=== PATIENT | female | born 1970 | race Caucasian/White ===

== ENCOUNTER → 2019-07-26 | Outpatient (CLI) | payer BC ==
[~2019-07-26] MED LIST: ATIVAN0.5 MG PO; FLUOXETINE
[2019-07-26 11:49] LABS: HEMATOCRIT 43.6 % (37.0-47.0); HEMOGLOBIN 14.7 g/dl (12.5-16.0); MEAN CELL VOLUME 95 fl (80.0-100.0); MEAN CORPUSCULAR HEMOGLOBIN 32 pg (27.0-31.0); MEAN CORPUSCULAR HGB CONC 34 g/dl (33.0-37.0); MEAN PLATELET VOLUME 10.6 fl (7.4-10.4); PLATELET COUNT 326 K/mm3 (130-400); RED BLOOD COUNT 4.57 M/mm3 (4.10-5.30); REDCELL DISTRIBUTION WIDTH-CV 11.9 % (11.5-14.5)
[2019-07-26 11:55] LABS: ALBUMIN 4.9 gm/dL (3.5-5.0); BILIRUBIN,TOTAL 0.6 mg/dL (0.0-1.0); CALCIUM 9.9 mg/dL (8.4-10.2); CHOLESTEROL RISK RATIO 2.4; CREATININE, serum 0.55 (0.52-1.25); POTASSIUM 4.3 mmol/L (3.4-5.0); TOTAL PROTEIN 8.6 gm/dL (6.4-8.2)
[2019-07-26 12:25] LABS: THYROID STIMULATING HORMONE 1.36 uIU/mL (0.465-4.680)
== END ==
LOC: ZLAB.FHCC 10:40
PROVIDERS: Pediatrics
DX: Z00.00 Encounter for general adult medical examination without abnormal findings (principal); F41.9 Anxiety disorder, unspecified; K21.9 Gastro-esophageal reflux disease without esophagitis

== ENCOUNTER 2021-05-11 10:47 | Inpatient (IN) | payer OTHER ==
[~2021-05-11] VITALS: Ht 154.9 cm; Wt 90.7 kg
[2021-05-11 11:58] LABS: BASO # 0.1 K/mm3 (0.0-0.2); BASO % 0.3 % (0.0-2.0); EOS # 0.1 K/mm3 (0.0-0.7); EOS % 0.3 % (0-4.0); GRAN % 84.1 % (42.2-75.2); HEMATOCRIT 46.1 % (37.0-47.0); HEMOGLOBIN 15.6 g/dl (12.5-16.0); LYMPH # 1.8 K/mm3 (1.2-3.4); LYMPH % 9.2 % (20.0-51.0); MEAN CELL VOLUME 96 fl (80.0-100.0); MEAN CORPUSCULAR HEMOGLOBIN 32 pg (27.0-31.0); MEAN CORPUSCULAR HGB CONC 34 g/dl (33.0-37.0); MEAN PLATELET VOLUME 9.8 fl (7.4-10.4); MONO # 1.1 K/mm3 (0.1-0.6); MONO % 5.7 % (1.7-9.3); PLATELET COUNT 365 K/mm3 (130-400); RED BLOOD COUNT 4.81 M/mm3 (4.10-5.30)
[2021-05-11 12:17] LABS: ALBUMIN 4.7 gm/dL (3.5-5.0); BILIRUBIN,TOTAL 0.7 mg/dL (0.2-1.2); CALCIUM 10.9 mg/dL (8.4-10.2); CREATININE, serum 0.95 mg/dL (0.57-1.11); TOTAL PROTEIN 9.8 gm/dL (6.2-8.1)
[2021-05-11 12:58] LABS: COLLECTION METHOD CLEAN CATCH
[2021-05-11 13:07] LABS: MUCOUS Present /lpf; PH 5 (5-8); URINE APPEARANCE Cloudy; URINE BACTERIA None Seen /hpf; URINE BILIRUBIN Positive (NEGATIVE); URINE BLOOD Negative (NEGATIVE); URINE COLOR Amber; URINE GLUCOSE Negative (NEGATIVE); URINE KETONE Trace (NEGATIVE); URINE LEUKOCYTE ESTERASE Negative (NEGATIVE); URINE NITRATE Negative (NEGATIVE); URINE PROTEIN(semi-quant) 2+ (NEGATIVE)
[2021-05-11] MEDS ORDERED: PRILOSEC10 MG PO (17:19)
[2021-05-11] MEDS ORDERED: ATIVAN 0.50.5 MG/TAB PO (17:19)
[2021-05-11 17:20] VITALS: BP 137/71; PULSE 87; TEMP 96.8
--- NOTE | 2021-05-11 18:30 | NUR ---
PT ARRIVED ON UNIT. NO COMPLAINTS OF PAIN OR NAUSEA. NO SIGNS OR SYMPTOMS OF DISTRESS. REPORT GIVEN TO [employer] ARTISTIC DIRECTOR.
[2021-05-11 20:10] VITALS: BP 128/64; PULSE 108; TEMP 98.4
--- NOTE | 2021-05-11 21:00 | NUR ---
PT REPORTS SHE WANTS TO GO HOME TONIGHT. CALLED DR BARKER TO REPORT THIS. PT DECLINED TO GO AMA AND WILL WAIT TILL MORNING TO VISIT WITH DR BARKER. PT REPORTS HAS HAD SEVERAL LOOSE LIQUID STOOLS AND NO NAUSEA. NG CONT LIS WITH MINIMAL RETURN.
[2021-05-12 00:19] VITALS: BP 120/61; PULSE 103; TEMP 97.7
--- NOTE | 2021-05-12 00:35 | NUR ---
PT HAS HAD MULTIPLE LOOSE STOOLS. TECHNICAL MGR IN COLOR. NO N/V.
[2021-05-12 04:15] VITALS: BP 101/58; PULSE 93; TEMP 98.9
[2021-05-12 07:10] LABS: BASO % 0.4 % (0.0-2.0); EOS # 0.1 K/mm3 (0.0-0.7); GRAN # 4.8 K/mm3 (1.4-6.5); GRAN % 60.3 % (42.2-75.2); HEMATOCRIT 39.8 % (37.0-47.0); LYMPH # 2.1 K/mm3 (1.2-3.4); LYMPH % 27.1 % (20.0-51.0); MEAN CELL VOLUME 100 fl (80.0-100.0); MEAN CORPUSCULAR HEMOGLOBIN 32 pg (27.0-31.0); MEAN CORPUSCULAR HGB CONC 32 g/dl (33.0-37.0); MEAN PLATELET VOLUME 10.2 fl (7.4-10.4); MONO # 0.9 K/mm3 (0.1-0.6); MONO % 11.1 % (1.7-9.3); PLATELET COUNT 310 K/mm3 (130-400); RED BLOOD COUNT 3.99 M/mm3 (4.10-5.30); REDCELL DISTRIBUTION WIDTH-CV 12.2 % (11.5-14.5)
--- NOTE | 2021-05-12 07:16 | NUR ---
REPORT RECIEVED FROM JEAN PIERRE MOORE. PT RESTING IN BED. NO SIGNS OF DISTRESS. NO COMPLAINTS OF PAIN OR NAUSEA. CALL LIGHT WITHIN REACH
[2021-05-12 07:26] LABS: ALBUMIN 3.4 gm/dL (3.5-5.0); BILIRUBIN,TOTAL 0.6 mg/dL (0.2-1.2); CALCIUM 8.6 mg/dL (8.4-10.2); CREATININE, serum 0.62 mg/dL (0.57-1.11); POTASSIUM 3.5 mmol/L (3.5-4.5); TOTAL PROTEIN 7.3 gm/dL (6.2-8.1)
[2021-05-12 07:31] LABS: HEMOGLOBIN 12.6 g/dl (12.5-16.0)
[2021-05-12 07:42] VITALS: BP 104/65; PULSE 92; TEMP 98.7
--- NOTE | 2021-05-12 09:38 | NUR ---
PT ASSESSED. NO SIGNS OR SYMPTOMS OF DISTRESS. NG TUBE REMOVED PER ORDERS. PT PROVIDED WITH A SPRITE TO SEE HOW HER STOMACH SETTLES. NO SIGNS OF DISTRESS, PAIN, OR NAUSEA NOTED. CALL LIGHT WITHIN REACH
--- NOTE | 2021-05-12 11:32 | NUR ---
PT DISCHARGED. IV REMOVED. NO QUESTIONS OR CONCERNED.
== END 2021-05-12 11:33 | disposition home or self-care (01) | DRG 390 ==
LOC: COL.ER 10:47 → SURG 15:27
PROVIDERS: Physician Assistant; ADMIT Surgery
DX: K56.609 Unspecified intestinal obstruction, unspecified as to partial versus complete obstruction (principal); K21.9 Gastro-esophageal reflux disease without esophagitis; F17.210 Nicotine dependence, cigarettes, uncomplicated; F32.A Depression, unspecified; F41.9 Anxiety disorder, unspecified
CPT/HCPCS: J1885; J2270; J2405; J2550; J3480; J7030; Q9967

== ENCOUNTER 2021-07-19 14:26 | Emergency (ER) | payer OTHER ==
[~2021-07-19] VITALS: Ht 154.9 cm; Wt 86.4 kg
[~2021-07-19 14:26] MED LIST changes: +ATIVAN 0.50.5 MG/TAB PO; +PRILOSEC10 MG PO
[2021-07-19 16:29] VITALS: BP 134/79; PULSE 79; TEMP 97.5
== END 2021-07-19 16:33 | disposition home or self-care (01) ==
LOC: COL.ER 14:26
DX: S93.602A Unspecified sprain of left foot, initial encounter (principal); F41.9 Anxiety disorder, unspecified; Z79.899 Other long term (current) drug therapy; W10.9XXA Fall (on) (from) unspecified stairs and steps, initial encounter
CPT/HCPCS: 31867; L4386